=== PATIENT | female | born 1955 | race Caucasian/White ===

== ENCOUNTER 2016-11-18 01:40 | Emergency (ER) | payer MEDICAID ==
[~2016-11-18] VITALS: Ht 165.1 cm; Wt 56.0 kg
[~2016-11-18 01:40] MED LIST: CEPH-376 PO; FLUO20CA19 PO; HYDR-3307 PO; HYDR50CA PO; LORA-445 PO; LOSA50TA6 PO; METO25TA35 PO; PANT40TA5 PO; TRAM50TA2 PO; ZIPR20CA2 PO
[2016-11-18 01:43] VITALS: BP 153/94
[2016-11-18] MEDS ORDERED: QUET100T4 PO (01:50)
[2016-11-18] MEDS ORDERED: OXYC-223 PO (01:50)
[2016-11-18] MEDS ORDERED: ONDANSETRON ODT 4 MG ONE (02:17)
[2016-11-18] MEDS ORDERED: ONDANSETRON ODT 4 MG PO ONE (02:30)
== END 2016-11-18 02:47 | disposition left against medical advice (07) ==
LOC: ED 02:41
DX: F10.220 Alcohol dependence with intoxication, uncomplicated (principal); I10 Essential (primary) hypertension; E87.6 Hypokalemia; F17.210 Nicotine dependence, cigarettes, uncomplicated
CPT/HCPCS: 99283; Q0162

== ENCOUNTER 2017-08-06 23:09 | Inpatient (IN) | payer MEDICAID ==
[~2017-08-06] VITALS: Ht 162.6 cm; Wt 55.5 kg
[~2017-08-06 23:09] MED LIST changes: +OXYC-306 PO; +QUET100T4 PO
[2017-08-07 00:01] LABS: BASOPHILS # (AUTO) 0.16 x10^3/uL (0-0.1); BASOPHILS % (AUTO) 2 % (0-1); EOSINOPHILS # (AUTO) 0.13 x10^3/uL (0-0.4); EOSINOPHILS % (AUTO) 1 % (1-7); HCT (SEDRATE) 32.9 % (34.6-47.8); LYMPHOCYTES # (AUTO) 3.25 x10^3/uL (1-3.4); LYMPHOCYTES % (AUTO) 33 % (22-44); MD NO; MEAN CORPUSCULAR HEMOGLOBIN 28.4 pg (27.0-34.8); MEAN CORPUSCULAR HGB CONC 33.4 g/dL (32.4-35.8); MEAN CORPUSCULAR VOLUME 84.9 fL (80-100); MEAN PLATELET VOLUME 6.5 fL (7.4-10.4); MONOCYTES # (AUTO) 0.68 x10^3/uL (0.2-0.8); MONOCYTES % (AUTO) 7 % (2-9); NEUTROPHILS # (AUTO) 5.57 x10^3/uL (1.8-6.8); NEUTROPHILS % (AUTO) 57 % (42-75); PLATELET COUNT 439 x10^3/uL (130-400); RED BLOOD COUNT 3.87 x10^6/uL (3.82-5.3); RED CELL DISTRIBUTION WIDTH 19.2 % (9.6-15.2)
[2017-08-07 00:12] LABS: ALBUMIN 2.7 g/dL (3.4-5.0); ANION GAP 10 mmol/L (5-15); CALCIUM 7.9 mg/dL (8.5-10.1); CHLORIDE 113 mmol/L (98-107); CREATININE 0.74 mg/dL (0.55-1.02)
[2017-08-07 00:34] LABS: SEDIMENTATION RATE 53 mm/hr (0-20)
[2017-08-07] MEDS ORDERED: SODIUM CHLORIDE FLUSH 10ML SYR IVF ONE (01:30)
[2017-08-07] MEDS ORDERED: CLINDAMYCIN PMX 300MG/50ML 50 ML IV ONE (01:30)
[2017-08-07] MEDS ORDERED: SODIUM CHLORIDE 0.9% 1,000 ML IV ONE (02:35)
[2017-08-07] MEDS ORDERED: SODIUM CHLORIDE FLUSH 10ML SYR IVF PRN (03:00)
[2017-08-07 03:17] VITALS: BP 115/80
[2017-08-07] MEDS ORDERED: METH500T97 PO (03:36)
[2017-08-07] MEDS ORDERED: MULT-252 PO (03:36)
[2017-08-07] MEDS ORDERED: PREG75CA PO (03:36)
== END 2017-08-07 06:00 | disposition left against medical advice (07) | DRG 603 ==
LOC: ED 23:45 → 4NOR 08-07 03:14
PROVIDERS: ADMIT Hospitalist; ATTEND Hospitalist
DX: L03.115 Cellulitis of right lower limb (principal); F25.9 Schizoaffective disorder, unspecified; F10.20 Alcohol dependence, uncomplicated; F31.9 Bipolar disorder, unspecified; F41.1 Generalized anxiety disorder; F43.10 Post-traumatic stress disorder, unspecified; G25.81 Restless legs syndrome; G40.909 Epilepsy, unspecified, not intractable, without status epilepticus; I10 Essential (primary) hypertension; Z86.14 Personal history of Methicillin resistant Staphylococcus aureus infection; Z91.81 History of falling
CPT/HCPCS: 36415; 80048; 80307; 82040; 85025; 85651; 86141; J7030

== ENCOUNTER 2018-12-27 12:18 | Inpatient (IN) | payer MEDICAID ==
[~2018-12-27] VITALS: Ht 165.1 cm; Wt 59.2 kg
[~2018-12-27 12:18] MED LIST changes: +LOSA50TA14 PO; -LOSA50TA6 PO; +METH500T97 PO; +MULT-252 PO; +PREG75CA PO
--- NOTE | 2018-12-27 12:40 | NUR ---
PT BIB [facility] WITH C/O OF LOW BACK PAIN, MID BACK PAIN, ABD C1 PAIN. PT HAS HX OF ANXIETY AND HAS NOT BEEN TAKING HER MEDS. PT WAS HYPOTENSIVE AT [employer] WHERE [facility] WAS CALLED AND REPORTED FEELING LIKE SHE WAS GOING TO PASS OUT. PER [facility] INITIAL BP WAS 60/40. AFTER 550 OF NS BP WAS 102/58. BS WAS 125. PT ON MONITOR.
--- NOTE | 2018-12-27 12:53 | NUR ---
PT IN RAD BEFORE BEING ABLE TO MEDICATE.
[2018-12-27 13:00] LABS: BASOPHILS # (AUTO) 0.08 x10^3/uL (0-0.1); BASOPHILS % (AUTO) 1 % (0-1); EOSINOPHILS # (AUTO) 0.01 x10^3/uL (0-0.4); EOSINOPHILS % (AUTO) 0 % (1-7); LYMPHOCYTES # (AUTO) 1.47 x10^3/uL (1-3.4); LYMPHOCYTES % (AUTO) 14 % (22-44); MD NO; MEAN CORPUSCULAR HEMOGLOBIN 32.5 pg (27.0-34.8); MEAN CORPUSCULAR HGB CONC 33.3 g/dL (32.4-35.8); MEAN CORPUSCULAR VOLUME 97.7 fL (80-100); MEAN PLATELET VOLUME 7.4 fL (7.4-10.4); MONOCYTES # (AUTO) 1.04 x10^3/uL (0.2-0.8); MONOCYTES % (AUTO) 10 % (2-9); NEUTROPHILS % (AUTO) 76 % (42-75); PLATELET COUNT 226 x10^3/uL (130-400); RED BLOOD COUNT 3.97 x10^6/uL (3.82-5.3); RED CELL DISTRIBUTION WIDTH 16.7 % (9.6-15.2)
[2018-12-27] MEDS ORDERED: KETOROLAC 30 MG/1 ML IVPush ONE (13:00)
[2018-12-27] MEDS ORDERED: PLEASE ENTER HEIGHT AND WEIGHT MC SCH (13:00)
[2018-12-27] MEDS ORDERED: METHOCARBAMOL 750 MG TABLET PO ONE (13:00)
[2018-12-27] MEDS ORDERED: KETOROLAC 30 MG/1 ML IM ONE (13:00)
[2018-12-27 13:09] LABS: ALBUMIN 3.6 g/dL (3.4-5.0); ANION GAP 16 mmol/L (5-15); CALCIUM 8.7 mg/dL (8.5-10.1); CHLORIDE 103 mmol/L (98-107); CREATININE 2.39 mg/dL (0.55-1.02)
[2018-12-27] MEDS ORDERED: METHOCARBAMOL 750 MG TABLET ONE (13:09)
[2018-12-27] MEDS ORDERED: hydrOXyzine 50MG TABLET ONE (13:09)
[2018-12-27] MEDS ORDERED: KETOROLAC 30 MG/1 ML ONE (13:10)
[2018-12-27] MEDS ORDERED: SEROQUEL PO (13:27)
[2018-12-27] MEDS ORDERED: PREG150C PO (13:27)
[2018-12-27] MEDS ORDERED: UNKNOWN ANTIBIOTIC PO (13:30)
[2018-12-27] MEDS ORDERED: FLUO40CA2 PO (13:30)
[2018-12-27] MEDS ORDERED: TERAZOSIN PO (13:30)
[2018-12-27] MEDS ORDERED: SODIUM CHLORIDE FLUSH 10ML SYR IVF PRN (13:30)
[2018-12-27] MEDS ORDERED: SODIUM CHLORIDE 0.9% 1,000ML IVBOLUS ONE (14:00)
[2018-12-27] MEDS ORDERED: hydrALAzine 20 MG/ML, 1ML IVPush PRN (16:00)
[2018-12-27] MEDS ORDERED: DOCUSATE 100 MG CAPSULE PO PRN (16:00)
[2018-12-27] MEDS ORDERED: POLYETHYLENE GLYCOL 17 GM PACKET PO PRN (16:00)
[2018-12-27] MEDS ORDERED: LABETALOL 5MG/ML, 20ML IVPush PRN (16:00)
[2018-12-27] MEDS ORDERED: ONDANSETRON 2MG/ML, 2ML IVPush PRN (16:00)
[2018-12-27] MEDS: HEPARIN 5,000 UNITS/ML, 1ML SQ SCH ×2 (16:00→22:49)
[2018-12-27] MEDS ORDERED: BISACODYL 10 MG SUPP PR PRN (16:00)
[2018-12-27] MEDS ORDERED: ONDANSETRON ODT 4 MG PO PRN (16:00)
[2018-12-27] MEDS: ACETAMINOPHEN 325 MG TABLET PO PRN (17:17)
[2018-12-27] MEDS: BACLOFEN 10 MG TABLET PO PRN (17:17)
[2018-12-27] MEDS: D5%-0.9% NACL+KCL 20MEQ 1,000 ML IV SCH (18:41)
[2018-12-27 18:48] VITALS: BP 145/82
[2018-12-27] MEDS: PREGABALIN 150 MG CAPSULE PO SCH (20:52)
[2018-12-27] MEDS: TRAZODONE 50MG TABLET PO PRN (21:14)
[2018-12-28 02:59] VITALS: BP 121/80
[2018-12-28] MEDS: D5%-0.9% NACL+KCL 20MEQ 1,000 ML IV SCH (03:43)
[2018-12-28 04:36] LABS: MEAN CORPUSCULAR HEMOGLOBIN 32.4 pg (27.0-34.8); MEAN CORPUSCULAR HGB CONC 32.8 g/dL (32.4-35.8); MEAN CORPUSCULAR VOLUME 98.8 fL (80-100); MEAN PLATELET VOLUME 7.3 fL (7.4-10.4); PLATELET COUNT 187 x10^3/uL (130-400); RED BLOOD COUNT 3.69 x10^6/uL (3.82-5.3); RED CELL DISTRIBUTION WIDTH 16.3 % (9.6-15.2)
[2018-12-28 04:49] LABS: ALBUMIN 2.9 g/dL (3.4-5.0); ANION GAP 8 mmol/L (5-15); CALCIUM 7.7 mg/dL (8.5-10.1); CHLORIDE 110 mmol/L (98-107)
[2018-12-28 04:53] LABS: ALANINE AMINOTRANSFERASE 25 U/L (12-78); ALKALINE PHOSPHATASE 107 U/L (45-117); BILIRUBIN,TOTAL 0.7 mg/dL (0.2-1.0); CREATININE 1.38 mg/dL (0.55-1.02); TOTAL PROTEIN 6.5 g/dL (6.4-8.2)
[2018-12-28 05:00] LABS: BASOPHILS # (AUTO) 0.06 x10^3/uL (0-0.1); BASOPHILS % (AUTO) 1 % (0-1); EOSINOPHILS # (AUTO) 0.14 x10^3/uL (0-0.4); EOSINOPHILS % (AUTO) 2 % (1-7); LYMPHOCYTES # (AUTO) 1.75 x10^3/uL (1-3.4); LYMPHOCYTES % (AUTO) 30 % (22-44); MD SCAN; MONOCYTES % (AUTO) 10 % (2-9); NEUTROPHILS # (AUTO) 3.28 x10^3/uL (1.8-6.8); NEUTROPHILS % (AUTO) 56 % (42-75)
[2018-12-28] MEDS ORDERED: QUET25TA5 PO (05:33)
[2018-12-28] MEDS ORDERED: BUPR75TA6 PO (05:36)
[2018-12-28] MEDS ORDERED: TRAZ-137 PO (05:37)
[2018-12-28 06:14] LABS: MICROSCOPIC AUTO
[2018-12-28 06:15] LABS: CULTURE INDICATED? YES
[2018-12-28] MEDS: ACETAMINOPHEN 325 MG TABLET PO PRN (06:17)
[2018-12-28] MEDS: BACLOFEN 10 MG TABLET PO PRN ×2 (06:17→18:51)
[2018-12-28 06:23] LABS: AMPHETAMINE SCREEN, URINE Negative (Negative); BARBITURATE SCREEN, URINE Negative (Negative); BENZODIAZEPINE SCREEN, URINE Negative (Negative); CANNABINOID SCREEN, URINE Negative (Negative); COCAINE SCREEN, URINE Negative (Negative); METHADONE SCREEN, URINE Negative (Negative); OPIATE SCREEN, URINE Negative (Negative)
[2018-12-28 07:49] VITALS: BP 167/83
[2018-12-28] MEDS ORDERED: MAGNESIUM SULFATE PMX 2GM/50ML 50 ML IV ONE (08:00)
[2018-12-28] MEDS ORDERED: POTASSIUM CHLORIDE 20 MEQ TAB.ER.PRT PO ONE (08:00)
[2018-12-28] MEDS ORDERED: D5%-0.45NACL+KCL 20MEQ 1,000 ML IV SCH (08:00)
[2018-12-28] MEDS: HEPARIN 5,000 UNITS/ML, 1ML SQ SCH ×2 (09:06→15:11)
[2018-12-28] MEDS: CEFTRIAXONE PMX 1GM/50ML 50 ML IV SCH (09:06)
[2018-12-28] MEDS: FLUOXETINE HCL 20 MG CAPSULE PO SCH (09:07)
[2018-12-28] MEDS: PREGABALIN 150 MG CAPSULE PO SCH ×2 (09:07→21:22)
[2018-12-28] MEDS: NEUTRA PHOS K 250 MG TABLET PO SCH ×2 (09:07→21:22)
[2018-12-28] MEDS ORDERED: LORazepam 1MG TABLET PO ONE (10:00)
[2018-12-28 13:17] VITALS: BP 154/91
[2018-12-28 18:31] VITALS: BP 181/100
[2018-12-28 18:49] VITALS: BP 163/98
[2018-12-28] MEDS: TRAZODONE 50MG TABLET PO PRN (21:22)
[2018-12-29 00:24] VITALS: BP 147/88
[2018-12-29 06:08] LABS: ANION GAP 6 mmol/L (5-15); CALCIUM 8.8 mg/dL (8.5-10.1); CHLORIDE 110 mmol/L (98-107)
[2018-12-29 06:11] LABS: CREATININE 0.84 mg/dL (0.55-1.02)
[2018-12-29 06:43] VITALS: BP 139/80
[2018-12-29] MEDS: HEPARIN 5,000 UNITS/ML, 1ML SQ SCH ×3 (07:15→15:34)
[2018-12-29] MEDS: NEUTRA PHOS K 250 MG TABLET PO SCH ×2 (08:57→20:31)
[2018-12-29] MEDS: PREGABALIN 150 MG CAPSULE PO SCH ×2 (08:57→20:31)
[2018-12-29] MEDS: FLUOXETINE HCL 20 MG CAPSULE PO SCH (08:57)
[2018-12-29] MEDS: BACLOFEN 10 MG TABLET PO PRN ×2 (08:57→17:44)
[2018-12-29] MEDS: CEFTRIAXONE PMX 1GM/50ML 50 ML IV SCH (08:58)
[2018-12-29 13:34] VITALS: BP 155/96
[2018-12-29] MEDS: LIDODERM 5% PATCH TD PRN ×2 (17:45→20:32)
[2018-12-29 18:39] VITALS: BP 165/92
[2018-12-29] MEDS: ACETAMINOPHEN 325 MG TABLET PO PRN (20:31)
[2018-12-29] MEDS: TRAZODONE 50MG TABLET PO PRN (22:35)
[2018-12-30] MEDS: HEPARIN 5,000 UNITS/ML, 1ML SQ SCH ×2 (00:10→08:21)
[2018-12-30 00:15] VITALS: BP 137/79
[2018-12-30] MEDS: BACLOFEN 10 MG TABLET PO PRN ×2 (05:07→15:23)
[2018-12-30 06:30] VITALS: BP 151/70
[2018-12-30] MEDS ORDERED: CEFD300C37 PO (08:15)
[2018-12-30] MEDS: FLUOXETINE HCL 20 MG CAPSULE PO SCH (08:20)
[2018-12-30] MEDS: NEUTRA PHOS K 250 MG TABLET PO SCH (08:20)
[2018-12-30] MEDS: PREGABALIN 150 MG CAPSULE PO SCH (08:20)
[2018-12-30] MEDS: CEFTRIAXONE PMX 1GM/50ML 50 ML IV SCH (08:20)
[2018-12-30] MEDS: ACETAMINOPHEN 325 MG TABLET PO PRN (09:17)
[2018-12-30 12:41] VITALS: BP 138/68
[2018-12-30] MEDS ORDERED: BACL-19 PO (14:28)
[2018-12-30] MEDS ORDERED: MAGN200T7 PO (14:29)
[2018-12-30] MEDS: LIDODERM 5% PATCH TD PRN (15:23)
== END 2018-12-30 15:34 | disposition home or self-care (01) | DRG 689 ==
LOC: ED 13:28 → EDIP 13:29 → ED 13:45 → 3NE 14:30
PROVIDERS: ADMIT Hospitalist; ATTEND Hospitalist
DX: N39.0 Urinary tract infection, site not specified (principal); N17.0 Acute kidney failure with tubular necrosis; E44.0 Moderate protein-calorie malnutrition; E87.1 Hypo-osmolality and hyponatremia; E87.2 Acidosis; B96.1 Klebsiella pneumoniae [K. pneumoniae] as the cause of diseases classified elsewhere; E83.39 Other disorders of phosphorus metabolism; E83.42 Hypomagnesemia; E87.6 Hypokalemia; F10.20 Alcohol dependence, uncomplicated; F25.9 Schizoaffective disorder, unspecified; F31.9 Bipolar disorder, unspecified; F41.1 Generalized anxiety disorder; F43.10 Post-traumatic stress disorder, unspecified; G40.909 Epilepsy, unspecified, not intractable, without status epilepticus; G89.29 Other chronic pain; I10 Essential (primary) hypertension; Z76.5 Malingerer [conscious simulation]; Z91.19 Patient's noncompliance with other medical treatment and regimen; Z68.21 Body mass index [BMI] 21.0-21.9, adult; M54.2 Cervicalgia
CPT/HCPCS: 36415; 72050; 72141; 76770; 80048; 80053; 80307; 81001; 82040; 83735; 84100; 85025; 87077; 87086; 87147; 87186; 96374; G0378; J0696; J1885; J3475; J3480; J7030; Q0177

== ENCOUNTER 2019-01-24 17:27 | Emergency (ER) | payer MEDICAID ==
[~2019-01-24] VITALS: Ht 162.6 cm; Wt 56.0 kg
[2019-01-24 17:52] VITALS: BP 89/55
== END 2019-01-24 19:54 | disposition home or self-care (01) ==
LOC: ED 19:48
DX: R55 Syncope and collapse (principal); F10.120 Alcohol abuse with intoxication, uncomplicated; I10 Essential (primary) hypertension; F25.9 Schizoaffective disorder, unspecified; F31.9 Bipolar disorder, unspecified; F41.9 Anxiety disorder, unspecified; F43.10 Post-traumatic stress disorder, unspecified; G40.909 Epilepsy, unspecified, not intractable, without status epilepticus; M19.90 Unspecified osteoarthritis, unspecified site; Z98.890 Other specified postprocedural states; Z72.9 Problem related to lifestyle, unspecified; Y90.9 Presence of alcohol in blood, level not specified
CPT/HCPCS: 36415; 80053; 80307; 83690; 85025; 93005; 99284

== ENCOUNTER 2019-02-18 21:29 | Emergency (ER) | payer MEDICAID ==
[~2019-02-18] VITALS: Ht 165.1 cm; Wt 60.0 kg
[~2019-02-18 21:29] MED LIST changes: +BACL-19 PO; +BUPR75TA6 PO; +CEFD300C37 PO; +FLUO40CA2 PO; -HYDR-3307 PO; +HYDR-36 PO; +MAGN200T7 PO; +PREG150C PO; +QUET25TA5 PO; +QUET50TA5 PO; +SEROQUEL PO; +TERA2CAP3 PO; +TERAZOSIN PO; +TRAZ-137 PO; +UNKNOWN ANTIBIOTIC PO
--- NOTE | 2019-02-18 21:45 | NUR ---
PT PRESENTS TO ED WITH DIZZINESS ALL DA WITH A COUPLE OF FALLS, WITHOUT LOC. PT REPORTS ETOH ON BOARD AND CHRONIC PAIN. PT TEARFUL REGARDING CHRONIC BACK PAIN.
--- NOTE | 2019-02-18 21:56 | NUR ---
MD AT BEDSIDE TALKING W/ PT
--- NOTE | 2019-02-18 21:58 | NUR ---
RECEIVED REPORT FROM ALEXANDRE HERNANDEZ AND ASSUMED PT CARE.
--- NOTE | 2019-02-18 22:02 | NUR ---
REPORT TO ALEXANDRE ROME.
[2019-02-18] MEDS ORDERED: DIAZ2TAB PO (22:05)
--- NOTE | 2019-02-18 22:13 | NUR ---
PT TO RESTROOM VIA WC. URINE SAMPLE COLLECTED AND TO LAB. PT INTO STRETCHER AND LAB AT BEDSIDE.
[2019-02-18 22:21] LABS: BASOPHILS # (AUTO) 0.08 x10^3/uL (0-0.1); BASOPHILS % (AUTO) 1 % (0-1); EOSINOPHILS # (AUTO) 0.29 x10^3/uL (0-0.4); EOSINOPHILS % (AUTO) 4 % (1-7); LYMPHOCYTES # (AUTO) 3.12 x10^3/uL (1-3.4); LYMPHOCYTES % (AUTO) 41 % (22-44); MD NO; MEAN CORPUSCULAR HEMOGLOBIN 32.3 pg (27.0-34.8); MEAN CORPUSCULAR HGB CONC 33.2 g/dL (32.4-35.8); MEAN CORPUSCULAR VOLUME 97.2 fL (80-100); MEAN PLATELET VOLUME 7.2 fL (7.4-10.4); MONOCYTES # (AUTO) 0.62 x10^3/uL (0.2-0.8); MONOCYTES % (AUTO) 8 % (2-9); NEUTROPHILS # (AUTO) 3.47 x10^3/uL (1.8-6.8); NEUTROPHILS % (AUTO) 46 % (42-75); PLATELET COUNT 266 x10^3/uL (130-400); RED BLOOD COUNT 4.53 x10^6/uL (3.82-5.3)
[2019-02-18 22:34] LABS: ALANINE AMINOTRANSFERASE 39 U/L (12-78); ANION GAP 14 mmol/L (5-15); CALCIUM 9.3 mg/dL (8.5-10.1); CHLORIDE 102 mmol/L (98-107); CREATININE 0.97 mg/dL (0.55-1.02)
[2019-02-18 22:39] LABS: ALKALINE PHOSPHATASE 152 U/L (45-117); BILIRUBIN,TOTAL 0.4 mg/dL (0.2-1.0); TOTAL PROTEIN 8.9 g/dL (6.4-8.2); TROPONIN I < 0.015 ng/mL (0.000-0.045)
--- NOTE | 2019-02-18 22:46 | NUR ---
PT ATTEMPTING TO GET OUT OF BED TO "FIND PURSE." ADVISED PT THAT SHE DID NOT COME IN WITH ANY BELONGINGS BESIDES HER SHOES. PT AGREED TO STAY IN BED.
--- NOTE | 2019-02-18 22:58 | NUR ---
ATTEMPTED TO CALL PT FRIEND TONICRISTIANA AT [phone] PER REQUEST BUT UNABLE TO REACH HIM D/T MESSAGE SAYING "YOUR NUMBER CANNOT BE COMPLETED DIALED"
[2019-02-18 23:02] VITALS: BP 138/80
[2019-03-14] MEDS ORDERED: MAGN400T50 PO (13:57)
[2019-03-14] MEDS ORDERED: CEFT1FRO2 IV (13:57)
[2019-03-14] MEDS ORDERED: ACID1TAB7 PO (13:57)
== END 2019-02-18 23:52 | disposition home or self-care (01) ==
LOC: ED 23:06
DX: F10.120 Alcohol abuse with intoxication, uncomplicated (principal); R55 Syncope and collapse; R42 Dizziness and giddiness; I10 Essential (primary) hypertension; G40.909 Epilepsy, unspecified, not intractable, without status epilepticus; F25.9 Schizoaffective disorder, unspecified; F43.10 Post-traumatic stress disorder, unspecified; F31.9 Bipolar disorder, unspecified; F41.1 Generalized anxiety disorder; Z72.9 Problem related to lifestyle, unspecified
CPT/HCPCS: 36415; 80053; 80307; 84484; 85025; 93005; 99284

== ENCOUNTER 2019-04-04 13:00 | Inpatient (IN) | payer MEDICAID ==
[~2019-04-04] VITALS: Ht 165.1 cm; Wt 57.7 kg
[~2019-04-04 13:00] MED LIST changes: +ACID1TAB7 PO; +CEFT1FRO2 IV; +DIAZ2TAB PO; +MAGN400T50 PO
[2019-04-04 14:54] LABS: BASOPHILS # (AUTO) 0.09 x10^3/uL (0-0.1); BASOPHILS % (AUTO) 1 % (0-1); EOSINOPHILS % (AUTO) 1 % (1-7); LYMPHOCYTES # (AUTO) 2.51 x10^3/uL (1-3.4); LYMPHOCYTES % (AUTO) 28 % (22-44); MD NO; MEAN CORPUSCULAR HEMOGLOBIN 31.9 pg (27.0-34.8); MEAN CORPUSCULAR HGB CONC 33.2 g/dL (32.4-35.8); MEAN CORPUSCULAR VOLUME 96.1 fL (80-100); MEAN PLATELET VOLUME 6.8 fL (7.4-10.4); MONOCYTES # (AUTO) 1.06 x10^3/uL (0.2-0.8); MONOCYTES % (AUTO) 12 % (2-9); NEUTROPHILS # (AUTO) 5.39 x10^3/uL (1.8-6.8); NEUTROPHILS % (AUTO) 59 % (42-75); PLATELET COUNT 416 x10^3/uL (130-400); RED BLOOD COUNT 4.02 x10^6/uL (3.82-5.3); RED CELL DISTRIBUTION WIDTH 18.1 % (9.6-15.2)
[2019-04-04 15:05] LABS: ALBUMIN 3.3 g/dL (3.4-5.0); ANION GAP 12 mmol/L (5-15); CALCIUM 8.6 mg/dL (8.5-10.1); CHLORIDE 101 mmol/L (98-107)
[2019-04-04 15:09] LABS: ALANINE AMINOTRANSFERASE 20 U/L (12-78); ALKALINE PHOSPHATASE 132 U/L (45-117); BILIRUBIN,TOTAL 0.3 mg/dL (0.2-1.0); CREATININE 1.85 mg/dL (0.55-1.02); TOTAL PROTEIN 9.1 g/dL (6.4-8.2)
--- NOTE | 2019-04-04 15:13 | NUR ---
ELECTRIC METER TESTER: PT TO ROOM FROM RORY CHANDRA
--- NOTE | 2019-04-04 16:15 | NUR ---
patient updated on plan of care, no noted acute distress. request pain medication for back, provider notified. will continue to monitor, patient tolerating interventions well at this time.
--- NOTE | 2019-04-04 16:36 | NUR ---
TASK RN: PT GIVEN UA CUP. PT AMBULATORY WITH STEADY GAIT TO BATHROOM TO TRY FOR UA SAMPLE.
--- NOTE | 2019-04-04 16:59 | NUR ---
patietn resting in bed, no noted acute distress. tolerating interventions well. will continue to monitor.
[2019-04-04 17:10] LABS: CULTURE INDICATED? YES; MICROSCOPIC INDICATED
--- NOTE | 2019-04-04 17:59 | NUR ---
PATIENT GONE TO CT.
--- NOTE | 2019-04-04 18:09 | NUR ---
SPOKE WITH PATIENT REGARDING FOOD, WILL SPEAK WITH ADMITTING MD.
--- NOTE | 2019-04-04 18:41 | NUR ---
TASK RN: PT RESTING ON GUR[place]UMBUS. NO ACUTE DISTRESS NOTED. PT WAITING FOR ROOM ASSIGNMENT. NO NEEDS REQUESTED AT THIS TIME.
[2019-04-04] MEDS ORDERED: CEFTRIAXONE PMX 1GM/50ML 50 ML IVPB ONE (19:00)
--- NOTE | 2019-04-04 19:10 | NUR ---
REPORT TO ALEXANDRE EDWARDS.
[2019-04-04] MEDS ORDERED: CEFTRIAXONE PMX 1GM/50ML 50 ML ONE (19:11)
--- NOTE | 2019-04-04 19:16 | NUR ---
patient updated on plan of care. antibiotics started. patient tolerating interventions well. vital signs stable.
[2019-04-04 19:30] VITALS: BP 139/86
[2019-04-04] MEDS ORDERED: FLUO40CA9 PO (20:26)
[2019-04-04] MEDS ORDERED: LURA20TA PO (20:26)
[2019-04-04] MEDS: LURASIDONE 20 MG TABLET PO SCH (22:16)
[2019-04-04] MEDS: DIAZEPAM 5 MG TABLET PO SCH (22:16)
[2019-04-04] MEDS: TRAZODONE 100MG TABLET PO SCH (22:17)
[2019-04-04] MEDS: PREGABALIN 150 MG CAPSULE PO SCH (22:17)
[2019-04-04] MEDS: QUETIAPINE 100MG TABLET PO SCH (22:17)
[2019-04-04] MEDS ORDERED: DOCUSATE 100 MG CAPSULE PO PRN (22:30)
[2019-04-04] MEDS ORDERED: LIDODERM 5% PATCH TD PRN (22:30)
[2019-04-04] MEDS ORDERED: hydrALAzine 20 MG/ML, 1ML IVPush PRN (22:30)
[2019-04-04] MEDS ORDERED: ONDANSETRON ODT 4 MG PO PRN (22:30)
[2019-04-04] MEDS: HEPARIN 5,000 UNITS/ML, 1ML SQ SCH (22:38)
[2019-04-04] MEDS: SODIUM CHLORIDE 0.9% 1,000 ML IV SCH (22:41)
[2019-04-04 23:16] VITALS: BP 66/45
[2019-04-04 23:17] VITALS: BP 90/58
[2019-04-04 23:38] VITALS: BP 88/56
[2019-04-05] VITALS (10 sets, daily range): BP systolic 110–171; BP diastolic 72–103
[2019-04-05] MEDS: SODIUM CHLORIDE 0.9% 1,000 ML IV SCH ×3 (05:09→20:06)
[2019-04-05 06:11] LABS: BASOPHILS # (AUTO) 0.06 x10^3/uL (0-0.1); BASOPHILS % (AUTO) 1 % (0-1); EOSINOPHILS # (AUTO) 0.16 x10^3/uL (0-0.4); EOSINOPHILS % (AUTO) 2 % (1-7); LYMPHOCYTES # (AUTO) 2.21 x10^3/uL (1-3.4); LYMPHOCYTES % (AUTO) 26 % (22-44); MD NO; MEAN CORPUSCULAR HEMOGLOBIN 31.7 pg (27.0-34.8); MEAN PLATELET VOLUME 6.7 fL (7.4-10.4); MONOCYTES % (AUTO) 10 % (2-9); NEUTROPHILS # (AUTO) 5.18 x10^3/uL (1.8-6.8); NEUTROPHILS % (AUTO) 62 % (42-75); PLATELET COUNT 336 x10^3/uL (130-400); RED BLOOD COUNT 3.62 x10^6/uL (3.82-5.3); RED CELL DISTRIBUTION WIDTH 18.5 % (9.6-15.2)
[2019-04-05] MEDS: HEPARIN 5,000 UNITS/ML, 1ML SQ SCH ×3 (06:19→22:30)
[2019-04-05 06:27] LABS: ANION GAP 11 mmol/L (5-15); CALCIUM 8.1 mg/dL (8.5-10.1); CHLORIDE 106 mmol/L (98-107); CREATININE 2.09 mg/dL (0.55-1.02)
[2019-04-05] MEDS: LURASIDONE 20 MG TABLET PO SCH ×2 (08:26→20:05)
[2019-04-05] MEDS: PREGABALIN 150 MG CAPSULE PO SCH ×2 (08:26→20:05)
[2019-04-05] MEDS: FLUOXETINE HCL 20 MG CAPSULE PO SCH (08:27)
[2019-04-05] MEDS: DIAZEPAM 5 MG TABLET PO SCH ×2 (08:27→20:05)
[2019-04-05] MEDS ORDERED: [UNRECOGNIZED DRUG - OTHER] PO (18:06)
[2019-04-05] MEDS: CEFTRIAXONE PMX 1GM/50ML 50 ML IV SCH (20:05)
[2019-04-05] MEDS: QUETIAPINE 100MG TABLET PO SCH (20:05)
[2019-04-05] MEDS: TRAZODONE 100MG TABLET PO SCH (20:12)
[2019-04-05] MEDS ORDERED: SODIUM CHLORIDE 0.9% 1,000 ML IV SCH (22:18)
[2019-04-06 00:39] VITALS: BP 138/85
[2019-04-06] MEDS: SODIUM CHLORIDE 0.9% 1,000 ML IV SCH ×4 (02:18→20:31)
[2019-04-06] MEDS: HEPARIN 5,000 UNITS/ML, 1ML SQ SCH ×3 (05:07→20:31)
[2019-04-06 05:15] LABS: ALBUMIN 2.5 g/dL (3.4-5.0); ANION GAP 8 mmol/L (5-15); CALCIUM 8.2 mg/dL (8.5-10.1); CHLORIDE 111 mmol/L (98-107)
[2019-04-06 05:18] LABS: ALANINE AMINOTRANSFERASE 11 U/L (12-78); ALKALINE PHOSPHATASE 107 U/L (45-117); BILIRUBIN,TOTAL 0.2 mg/dL (0.2-1.0); CREATININE 1.52 mg/dL (0.55-1.02); TOTAL PROTEIN 7.1 g/dL (6.4-8.2)
[2019-04-06] MEDS: PREGABALIN 150 MG CAPSULE PO SCH ×2 (07:57→20:31)
[2019-04-06] MEDS: FLUOXETINE HCL 20 MG CAPSULE PO SCH (07:57)
[2019-04-06] MEDS: DIAZEPAM 5 MG TABLET PO SCH ×2 (07:57→20:31)
[2019-04-06] MEDS: LURASIDONE 20 MG TABLET PO SCH ×2 (07:57→20:31)
[2019-04-06 09:10] VITALS: BP 153/89
[2019-04-06] MEDS ORDERED: MAGNESIUM SULFATE PMX 2GM/50ML 50 ML IV ONE (09:30)
[2019-04-06] MEDS: OXYcodone IR 5MG TABLET PO PRN ×2 (12:56→21:20)
[2019-04-06 13:33] VITALS: BP 162/97
[2019-04-06] MEDS: METOPROLOL TARTRATE 25 MG TABLET PO SCH (17:22)
[2019-04-06] MEDS: CEFTRIAXONE PMX 1GM/50ML 50 ML IV SCH (19:24)
[2019-04-06 19:55] VITALS: BP 178/97
[2019-04-06] MEDS: TRAZODONE 100MG TABLET PO SCH (20:30)
[2019-04-06] MEDS: QUETIAPINE 100MG TABLET PO SCH (20:31)
[2019-04-06 21:20] VITALS: BP 137/79
[2019-04-07 01:08] VITALS: BP 93/56
[2019-04-07] MEDS: METOPROLOL TARTRATE 25 MG TABLET PO SCH ×2 (04:37→05:40)
[2019-04-07] MEDS: OXYcodone IR 5MG TABLET PO PRN ×2 (04:37→11:48)
[2019-04-07] MEDS: HEPARIN 5,000 UNITS/ML, 1ML SQ SCH (04:38)
[2019-04-07] MEDS: SODIUM CHLORIDE 0.9% 1,000 ML IV SCH (04:38)
[2019-04-07 04:39] VITALS: BP 147/85
[2019-04-07 06:14] LABS: BASOPHILS # (AUTO) 0.06 x10^3/uL (0-0.1); BASOPHILS % (AUTO) 1 % (0-1); EOSINOPHILS # (AUTO) 0.21 x10^3/uL (0-0.4); EOSINOPHILS % (AUTO) 3 % (1-7); LYMPHOCYTES # (AUTO) 2.25 x10^3/uL (1-3.4); LYMPHOCYTES % (AUTO) 27 % (22-44); MD NO; MEAN CORPUSCULAR HGB CONC 33.2 g/dL (32.4-35.8); MEAN CORPUSCULAR VOLUME 96.5 fL (80-100); MEAN PLATELET VOLUME 6.9 fL (7.4-10.4); MONOCYTES # (AUTO) 1.18 x10^3/uL (0.2-0.8); MONOCYTES % (AUTO) 14 % (2-9); NEUTROPHILS # (AUTO) 4.79 x10^3/uL (1.8-6.8); NEUTROPHILS % (AUTO) 57 % (42-75); PLATELET COUNT 322 x10^3/uL (130-400); RED BLOOD COUNT 3.58 x10^6/uL (3.82-5.3)
[2019-04-07 06:21] LABS: ANION GAP 8 mmol/L (5-15); CALCIUM 7.8 mg/dL (8.5-10.1); CHLORIDE 108 mmol/L (98-107); CREATININE 1.54 mg/dL (0.55-1.02)
[2019-04-07] MEDS ORDERED: MAGNESIUM SULFATE PMX 2GM/50ML 50 ML IV ONE (07:00)
[2019-04-07] MEDS: LURASIDONE 20 MG TABLET PO SCH (08:18)
[2019-04-07] MEDS: FLUOXETINE HCL 20 MG CAPSULE PO SCH (08:19)
[2019-04-07] MEDS: DIAZEPAM 5 MG TABLET PO SCH (08:20)
[2019-04-07] MEDS: PREGABALIN 150 MG CAPSULE PO SCH (08:21)
[2019-04-07 08:29] VITALS: BP 120/74
[2019-04-07] MEDS ORDERED: CEPH-368 PO (10:18)
== END 2019-04-07 11:49 | disposition home or self-care (01) | DRG 282 ==
LOC: ED 16:25 → EDIP 18:48 → 4WST 19:38
PROVIDERS: ADMIT Internal Medicine; ATTEND Internal Medicine
DX: K85.20 Alcohol induced acute pancreatitis without necrosis or infection (principal); N17.0 Acute kidney failure with tubular necrosis; I27.20 Pulmonary hypertension, unspecified; E83.42 Hypomagnesemia; I50.32 Chronic diastolic (congestive) heart failure; F25.0 Schizoaffective disorder, bipolar type; I13.0 Hypertensive heart and chronic kidney disease with heart failure and stage 1 through stage 4 chronic kidney disease, or unspecified chronic kidney disease; N12 Tubulo-interstitial nephritis, not specified as acute or chronic; N30.90 Cystitis, unspecified without hematuria; B96.20 Unspecified Escherichia coli [E. coli] as the cause of diseases classified elsewhere; F10.10 Alcohol abuse, uncomplicated; F41.1 Generalized anxiety disorder; F43.10 Post-traumatic stress disorder, unspecified; F45.22 Body dysmorphic disorder; N18.9 Chronic kidney disease, unspecified; G25.81 Restless legs syndrome; G40.909 Epilepsy, unspecified, not intractable, without status epilepticus; R00.0 Tachycardia, unspecified; J32.9 Chronic sinusitis, unspecified; Z87.440 Personal history of urinary (tract) infections
CPT/HCPCS: 36415; 70450; 76770; 80048; 80053; 81001; 82533; 82977; 83605; 83690; 83735; 84100; 85025; 87040; 87077; 87086; 87186; 93005; 96365; G0378; J0696; Q0162; J0360; J3475; J7030

== ENCOUNTER 2019-08-07 15:27 | Emergency (ER) | payer MEDICAID ==
[~2019-08-07] VITALS: Ht 165.1 cm; Wt 60.3 kg
[~2019-08-07 15:27] MED LIST changes: +CEPH-368 PO; +FLUO40CA9 PO; +LURA20TA PO; -TRAZ-137 PO; +TRAZ-175 PO; +[UNRECOGNIZED DRUG - OTHER] PO
[2019-08-07 17:29] LABS: ALBUMIN 3.6 g/dL (3.4-5.0); ANION GAP 11 mmol/L (5-15); BASOPHILS # (AUTO) 0.05 x10^3/uL (0-0.1); BASOPHILS % (AUTO) 1 % (0-1); CALCIUM 9.2 mg/dL (8.5-10.1); CHLORIDE 109 mmol/L (98-107); CREATININE 1.45 mg/dL (0.55-1.02); EOSINOPHILS # (AUTO) 0.08 x10^3/uL (0-0.4); EOSINOPHILS % (AUTO) 1 % (1-7); LYMPHOCYTES # (AUTO) 2.43 x10^3/uL (1-3.4); LYMPHOCYTES % (AUTO) 32 % (22-44); MD NO; MEAN CORPUSCULAR HGB CONC 33.4 g/dL (32.4-35.8); MEAN CORPUSCULAR VOLUME 89.9 fL (80-100); MONOCYTES # (AUTO) 0.51 x10^3/uL (0.2-0.8); MONOCYTES % (AUTO) 7 % (2-9); NEUTROPHILS # (AUTO) 4.63 x10^3/uL (1.8-6.8); NEUTROPHILS % (AUTO) 60 % (42-75); PLATELET COUNT 393 x10^3/uL (130-400); RED BLOOD COUNT 4.28 x10^6/uL (3.82-5.3); RED CELL DISTRIBUTION WIDTH 15.7 % (9.6-15.2)
--- NOTE | 2019-08-07 17:57 | NUR ---
PATIENT ARRIVES WITH A MONTH OF COUGHING THAT IS BOTHERING HER THAT IS AFFECTING HER SLEEP.
[2019-08-07] MEDS ORDERED: CLON1TAB PO (18:03)
--- NOTE | 2019-08-07 18:04 | NUR ---
PATIENT STATES SHE HAS KIDNEY FAILURE HISTORY AND NOW STATES SHE THINKS SHE HAS A UTI. WILL GET URINE SAMPLE. PATIENT STATES URGENCY/PAIN AND "SMELLY" URINE. WAS HOSPITALIZED IN December FOR KIDNEY FAILURE
[2019-08-07 18:27] VITALS: BP 137/85
[2019-08-07] MEDS ORDERED: PANTOPRAZOLE 20MG TABLET ONE (18:29)
[2019-08-07] MEDS ORDERED: PANTOPRAZOLE 20MG TABLET PO ONE (18:30)
== END 2019-08-07 18:45 | disposition home or self-care (01) ==
LOC: ED 16:27
DX: J15.9 Unspecified bacterial pneumonia (principal); I10 Essential (primary) hypertension; R00.0 Tachycardia, unspecified
CPT/HCPCS: 36415; 71046; 80048; 82040; 85025; 93005; 99285

== ENCOUNTER 2019-08-16 11:30 | Emergency (ER) | payer MEDICAID ==
[~2019-08-16] VITALS: Ht 162.6 cm; Wt 54.5 kg
[~2019-08-16 11:30] MED LIST changes: +CLON1TAB PO
[2019-08-16 11:58] VITALS: BP 158/99
--- NOTE | 2019-08-16 12:30 | NUR ---
LATE ENTRY: PT DRESSED IN GOWN, ALL BELONGINGS REMOVED, BAGGED, TAGGED AT BEDSIDE. PT DENIES ANY SI/SA. SITTER NOTIFIED.
[2019-08-16 12:57] LABS: BASOPHILS # (AUTO) 0.07 x10^3/uL (0-0.1); BASOPHILS % (AUTO) 1 % (0-1); EOSINOPHILS % (AUTO) 1 % (1-7); LYMPHOCYTES # (AUTO) 3.59 x10^3/uL (1-3.4); LYMPHOCYTES % (AUTO) 43 % (22-44); MD NO; MEAN CORPUSCULAR HEMOGLOBIN 30.6 pg (27.0-34.8); MEAN CORPUSCULAR HGB CONC 33.7 g/dL (32.4-35.8); MEAN CORPUSCULAR VOLUME 90.7 fL (80-100); MEAN PLATELET VOLUME 6.6 fL (7.4-10.4); MONOCYTES # (AUTO) 0.53 x10^3/uL (0.2-0.8); MONOCYTES % (AUTO) 6 % (2-9); NEUTROPHILS # (AUTO) 4.11 x10^3/uL (1.8-6.8); NEUTROPHILS % (AUTO) 49 % (42-75); PLATELET COUNT 307 x10^3/uL (130-400); RED BLOOD COUNT 4.01 x10^6/uL (3.82-5.3); RED CELL DISTRIBUTION WIDTH 16.8 % (9.6-15.2)
[2019-08-16 13:09] LABS: ALANINE AMINOTRANSFERASE 35 U/L (12-78); ALBUMIN 3.4 g/dL (3.4-5.0); ANION GAP 8 mmol/L (5-15); CALCIUM 8.1 mg/dL (8.5-10.1); CHLORIDE 109 mmol/L (98-107); CREATININE 1.68 mg/dL (0.55-1.02)
[2019-08-16 13:14] LABS: SALICYLATE LEVEL < 1.7 mg/dL (2.8-20.0)
[2019-08-16 13:19] LABS: ALKALINE PHOSPHATASE 116 U/L (45-117); BILIRUBIN,TOTAL 0.2 mg/dL (0.2-1.0); TOTAL PROTEIN 7.8 g/dL (6.4-8.2)
[2019-08-16 13:38] LABS: AMPHETAMINE SCREEN, URINE Negative (Negative); BARBITURATE SCREEN, URINE Negative (Negative); BENZODIAZEPINE SCREEN, URINE Negative (Negative); CANNABINOID SCREEN, URINE Negative (Negative); COCAINE SCREEN, URINE Negative (Negative); METHADONE SCREEN, URINE Negative (Negative); OPIATE SCREEN, URINE Negative (Negative)
--- NOTE | 2019-08-16 14:59 | NUR ---
PT CALLED FOR ASSISTANCE TO RESTROOM. PT SLURRING SPEECH, GAIT UNSTEADY. PERSONAL BOTTLE OF VODKA FOUND IN ROOM, LID OFF, EMPTY. ALL BELONGINGS BAGS REMOVED AND LOCKED IN LOCKER. BOW MAKER PRODUCTION NOTIFIED. PT DISAGREEABLE TO HAVING CURTAIN OPEN FOR DIRECT LINE OF SIGHT. CURTAIN REMOVED. TV TURNED ON PER REQUEST.
[2019-08-16 15:03] LABS: MICROSCOPIC AUTO
[2019-08-16 15:05] LABS: CULTURE INDICATED? YES
--- NOTE | 2019-08-16 15:10 | NUR ---
REPORT FROM ALEXANDRE RICE. PT RESTING WITH EYES CLOSED. EVEN/REGULAR RESPIRATIONS NOTED. ROOM SECURE. SITTER PRESENT.
--- NOTE | 2019-08-16 16:00 | NUR ---
PT REQUESTING TO USE RESTROOM. PT AMBULATORY TO RESTROOM WITH STEADY GAIT. UPON RETURN TO ROOM, PT DEMANDING TO LEAVE OR GO UPSTAIRS. PT MADE AWARE THAT DUE TO ALCOHOL CONSUMPTION, SHE IS NOT PERMITTED UPSTAIRS UNTIL SHE IS SOBER. MEAL TRAY REQUESTED.
--- NOTE | 2019-08-16 16:47 | NUR ---
SI APPROPRIATE MEAL TRAY PROVIDED. PT REQUESTING TO GO UPSTAIRS. REPEAT EDUCATION AND POC REVIEWED WITH PATIENT. ROOM REMAINS SECURE. SITTER PRESENT.
--- NOTE | 2019-08-16 18:18 | NUR ---
BREATHALYZER COMPLETED. PT COOPERATIVE.
--- NOTE | 2019-08-16 19:12 | NUR ---
KNIFE CUTTER AT BEDSIDE TO ASSESS PATIENT
--- NOTE | 2019-08-16 20:25 | NUR ---
PT CLEARED BY FAMILY RESOURCE COORDINATOR. DC EDUCATION PROVIDED, PT DEMONSTRATES UNDERSTANDING. PT AMBULATED STEADILY TO DC WITH FRIEND. FRIEND TO TRANSPORT PT HOME.
== END 2019-08-16 20:27 | disposition home or self-care (01) ==
LOC: ED 19:00
DX: F10.10 Alcohol abuse, uncomplicated (principal); F50.2 Bulimia nervosa; I12.9 Hypertensive chronic kidney disease with stage 1 through stage 4 chronic kidney disease, or unspecified chronic kidney disease; N18.9 Chronic kidney disease, unspecified; G40.909 Epilepsy, unspecified, not intractable, without status epilepticus
CPT/HCPCS: 36415; 80053; 80307; 81001; 84443; 85025; 87077; 87086; 87186; 99283

== ENCOUNTER 2020-01-26 17:57 | Emergency (ER) | payer MEDICAID ==
[~2020-01-26] VITALS: Ht 160 cm; Wt 70.0 kg
[~2020-01-26 17:57] MED LIST changes: +HYDR-3246 PO; -HYDR-36 PO
[2020-01-26 18:35] VITALS: BP 130/78
--- NOTE | 2020-01-26 18:44 | NUR ---
just got patient moved to my room and patient report from Nelda. patient belongings locked up, and patient in gown. sitter outside room. all suicide precations in place. patient states per herself that "i'm an alcoholic, i've endless psych issues and i want to ". will monitor.
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
--- NOTE | 2020-01-26 18:45 | NUR ---
REPORT TO NARESH SCHROEDER
--- NOTE | 2020-01-26 19:03 | NUR ---
RECEIVED REPORT FROM ALEXANDRE INFANTE. PT PROVIDED WITH BLANKET, NO SIGNS OF DISTRESS, WILL CONTINUE TO MONITOR. PT IN VIEW OF THE SITTER.
--- NOTE | 2020-01-26 20:43 | NUR ---
ERP BACK TO BEDSIDE. PT DENIES SI/HI.
== END 2020-01-26 20:48 ==
LOC: ED 20:42
DX: F10.120 Alcohol abuse with intoxication, uncomplicated (principal); R45.851 Suicidal ideations; I10 Essential (primary) hypertension; G40.909 Epilepsy, unspecified, not intractable, without status epilepticus; Y90.9 Presence of alcohol in blood, level not specified
CPT/HCPCS: 99283

== ENCOUNTER 2020-07-06 11:10 | Inpatient (IN) | payer MEDICAID ==
[~2020-07-06] VITALS: Ht 165.1 cm; Wt 56.4 kg
[~2020-07-06 11:10] MED LIST changes: -HYDR-3246 PO; +HYDR-3248 PO; -OXYC-306 PO; +OXYC1TAB17 PO; -PANT40TA5 PO; +PANT40TA6 PO
--- NOTE | 2020-07-06 11:23 | NUR ---
PT FRAN FROM HOME, PT REPORTS N/V, FREQUENT FALLS, AND SYNCOPE MULTIPLE TIMES OVER THE LAST WEEK. PT STATES SHE LIVES ALONE. PLACED ON VITALS AND CARDIAC MONITORS, CALL LIGHT GIVEN, AND WARM BLANKETS PROVIDED.
[2020-07-06] MEDS ORDERED: SODIUM CHLORIDE FLUSH 10ML SYR IVF ONE (12:00)
[2020-07-06 12:12] LABS: BASOPHILS % (AUTO) 0 % (0-1); EOSINOPHILS % (AUTO) 0 % (1-7); LYMPHOCYTES % (AUTO) 7 % (22-44); MEAN PLATELET VOLUME 6.1 fL (7.4-10.4); MONOCYTES % (AUTO) 6 % (2-9); NEUTROPHILS % (AUTO) 88 % (42-75); PLATELET COUNT 604 x10^3/uL (130-400); RED BLOOD COUNT 3.44 x10^6/uL (3.82-5.3); RED CELL DISTRIBUTION WIDTH 16.3 % (9.6-15.2)
[2020-07-06 12:23] LABS: ALANINE AMINOTRANSFERASE 82 U/L (12-78); ALBUMIN 3.5 g/dL (3.4-5.0); ANION GAP 15 mmol/L (5-15); CALCIUM 7.5 mg/dL (8.5-10.1); CHLORIDE 85 mmol/L (98-107); CREATININE 1.48 mg/dL (0.55-1.02)
[2020-07-06 12:25] LABS: ALKALINE PHOSPHATASE 193 U/L (45-117); BILIRUBIN,TOTAL 1.5 mg/dL (0.2-1.0); MICROSCOPIC NOT IND; TOTAL PROTEIN 8.4 g/dL (6.4-8.2)
[2020-07-06 12:46] LABS: MD SCAN
[2020-07-06] MEDS ORDERED: NS + 40MEQ KCL 1,000 ML IV ONE (12:57)
[2020-07-06] MEDS ORDERED: POTASSIUM CHLORIDE 40 MEQ in SODIUM CHLORIDE 0.9% 1,000 ML IV ONE (13:00)
[2020-07-06] MEDS ORDERED: POTASSIUM CHLORIDE 10% 40 MEQ/30 ML UDC PO ONE (13:00)
[2020-07-06] MEDS ORDERED: MAGNESIUM SULFATE 1 GM in SODIUM CHLORIDE 0.9% 50 ML IV ONE (13:00)
[2020-07-06] MEDS ORDERED: SODIUM CHLORIDE FLUSH 10ML SYR IVF PRN (13:30)
[2020-07-06] MEDS ORDERED: ONDANSETRON ODT 4 MG PO PRN (13:30)
[2020-07-06] MEDS ORDERED: SODIUM CHLORIDE 0.9% 1,000 ML IV SCH (13:30)
[2020-07-06] MEDS ORDERED: ONDANSETRON 2MG/ML, 2ML IVPush PRN (13:30)
[2020-07-06] MEDS ORDERED: CLON1TAB11 PO (13:53)
[2020-07-06] MEDS ORDERED: QUET100T PO (13:53)
[2020-07-06] MEDS ORDERED: LISI-606 PO (13:53)
[2020-07-06] MEDS ORDERED: TEMA7.5C PO (13:53)
--- NOTE | 2020-07-06 13:53 | NUR ---
REPORT TO GEGE SCHROEDER.
[2020-07-06 14:46] VITALS: BP 146/85
[2020-07-06] MEDS: HEPARIN 5,000 UNITS/ML, 1ML SQ SCH (15:26)
[2020-07-06] MEDS: SODIUM CHLORIDE 0.9% 1,000 ML IV SCH (17:56)
[2020-07-06] MEDS: DIAZEPAM 5 MG TABLET PO SCH (20:41)
[2020-07-06] MEDS: TRAZODONE 100MG TABLET PO SCH (20:43)
[2020-07-06] MEDS: QUETIAPINE 100MG TABLET PO SCH (20:43)
[2020-07-06 20:48] VITALS: BP 131/81
[2020-07-07] MEDS: HEPARIN 5,000 UNITS/ML, 1ML SQ SCH ×3 (01:27→21:27)
[2020-07-07 01:28] VITALS: BP 125/82
[2020-07-07 05:14] LABS: ALANINE AMINOTRANSFERASE 61 U/L (12-78); ALBUMIN 2.8 g/dL (3.4-5.0); ANION GAP 7 mmol/L (5-15); CALCIUM 7.4 mg/dL (8.5-10.1); CHLORIDE 96 mmol/L (98-107); CREATININE 1.29 mg/dL (0.55-1.02); IRON LEVEL 70 mcg/dL (50-170)
[2020-07-07 05:18] LABS: % IRON SATURATION 40 % (20-55); ALKALINE PHOSPHATASE 157 U/L (45-117); BILIRUBIN,TOTAL 0.9 mg/dL (0.2-1.0); TOTAL IRON BINDING CAPACITY 175 mcg/dL (250-450); TOTAL PROTEIN 6.8 g/dL (6.4-8.2)
[2020-07-07 07:57] LABS: BASOPHILS % (AUTO) 2 % (0-1); EOSINOPHILS % (AUTO) 1 % (1-7); LYMPHOCYTES % (AUTO) 29 % (22-44); MEAN CORPUSCULAR HGB CONC 35.3 g/dL (32.4-35.8); MEAN PLATELET VOLUME 6.9 fL (7.4-10.4); MONOCYTES % (AUTO) 8 % (2-9); NEUTROPHILS % (AUTO) 60 % (42-75); PLATELET COUNT 470 x10^3/uL (130-400); RED BLOOD COUNT 2.82 x10^6/uL (3.82-5.3); RED CELL DISTRIBUTION WIDTH 16.5 % (9.6-15.2)
[2020-07-07 08:05] LABS: MD NO
[2020-07-07 08:25] VITALS: BP 114/71
[2020-07-07] MEDS ORDERED: POTASSIUM CHLORIDE 20 MEQ TAB.ER.PRT PO ONE (08:30)
[2020-07-07] MEDS ORDERED: MAGNESIUM SULFATE PMX 4GM/100M 100 ML IV ONE (08:30)
[2020-07-07] MEDS: CALCIUM/VITAMIN D3 250-125 TABLET PO SCH ×2 (09:00→21:00)
[2020-07-07] MEDS: DIAZEPAM 5 MG TABLET PO SCH ×2 (09:37→21:24)
[2020-07-07] MEDS: SODIUM CHLORIDE 0.9% 1,000 ML IV SCH (10:40)
[2020-07-07] MEDS ORDERED: SODIUM CHLORIDE 0.9% 1,000 ML IV SCH (13:30)
[2020-07-07 14:45] VITALS: BP 130/79
[2020-07-07 20:10] VITALS: BP 120/81
[2020-07-07] MEDS: TRAZODONE 100MG TABLET PO SCH (21:24)
[2020-07-07] MEDS: QUETIAPINE 100MG TABLET PO SCH (21:25)
[2020-07-08 02:39] VITALS: BP 111/75
[2020-07-08 06:32] LABS: BASOPHILS % (AUTO) 2 % (0-1); EOSINOPHILS % (AUTO) 1 % (1-7); LYMPHOCYTES % (AUTO) 26 % (22-44); MEAN CORPUSCULAR HEMOGLOBIN 32.6 pg (27.0-34.8); MEAN CORPUSCULAR HGB CONC 33.8 g/dL (32.4-35.8); MEAN PLATELET VOLUME 6.1 fL (7.4-10.4); MONOCYTES % (AUTO) 9 % (2-9); NEUTROPHILS % (AUTO) 62 % (42-75); PLATELET COUNT 420 x10^3/uL (130-400); RED BLOOD COUNT 2.83 x10^6/uL (3.82-5.3); RED CELL DISTRIBUTION WIDTH 16.2 % (9.6-15.2)
[2020-07-08 06:45] LABS: ALANINE AMINOTRANSFERASE 73 U/L (12-78); ALBUMIN 2.7 g/dL (3.4-5.0); ANION GAP 7 mmol/L (5-15); CALCIUM 9.3 mg/dL (8.5-10.1); CHLORIDE 103 mmol/L (98-107); CREATININE 1.19 mg/dL (0.55-1.02)
[2020-07-08 06:46] LABS: MD NO
[2020-07-08 06:48] LABS: ALKALINE PHOSPHATASE 161 U/L (45-117); BILIRUBIN,TOTAL 0.7 mg/dL (0.2-1.0); TOTAL PROTEIN 6.6 g/dL (6.4-8.2)
[2020-07-08] MEDS: CALCIUM/VITAMIN D3 250-125 TABLET PO SCH ×2 (08:01→21:00)
[2020-07-08] MEDS: DIAZEPAM 5 MG TABLET PO SCH ×2 (08:01→21:56)
[2020-07-08 09:11] VITALS: BP 131/100
[2020-07-08] MEDS: SODIUM CHLORIDE 0.9% 1,000 ML IV SCH (12:10)
[2020-07-08] MEDS: HEPARIN 5,000 UNITS/ML, 1ML SQ SCH (12:11)
[2020-07-08 14:20] VITALS: BP 133/86
[2020-07-08 21:54] VITALS: BP 161/96
[2020-07-08] MEDS: QUETIAPINE 100MG TABLET PO SCH (21:56)
[2020-07-08] MEDS: TRAZODONE 100MG TABLET PO SCH (21:56)
[2020-07-09] MEDS: HEPARIN 5,000 UNITS/ML, 1ML SQ SCH ×2 (01:30→13:30)
[2020-07-09 03:00] VITALS: BP 144/88
[2020-07-09 06:38] LABS: ANION GAP 9 mmol/L (5-15); CALCIUM 9.8 mg/dL (8.5-10.1); CHLORIDE 98 mmol/L (98-107); CREATININE 1.05 mg/dL (0.55-1.02)
[2020-07-09 06:53] VITALS: BP 130/85
[2020-07-09] MEDS: DIAZEPAM 5 MG TABLET PO SCH ×2 (08:44→21:34)
[2020-07-09] MEDS: CALCIUM/VITAMIN D3 250-125 TABLET PO SCH ×2 (08:44→21:34)
[2020-07-09 11:03] VITALS: BP_SYST 115; BP_SYST 123; BP_SYST 136; BP_DIAS 79; BP_DIAS 82; BP_DIAS 90
[2020-07-09 12:07] VITALS: BP 131/83
[2020-07-09 20:00] VITALS: BP 164/108
[2020-07-09] MEDS ORDERED: hydrALAzine 20 MG/ML, 1ML IV ONE (21:30)
[2020-07-09] MEDS: QUETIAPINE 100MG TABLET PO SCH (21:34)
[2020-07-09] MEDS: TRAZODONE 100MG TABLET PO SCH (21:34)
[2020-07-09 21:50] VITALS: BP 146/88
[2020-07-10] MEDS: HEPARIN 5,000 UNITS/ML, 1ML SQ SCH ×3 (01:10→20:52)
[2020-07-10 02:53] VITALS: BP 108/80
[2020-07-10 05:18] LABS: BASOPHILS % (AUTO) 2 % (0-1); EOSINOPHILS % (AUTO) 1 % (1-7); LYMPHOCYTES % (AUTO) 18 % (22-44); MEAN CORPUSCULAR HEMOGLOBIN 33.3 pg (27.0-34.8); MEAN CORPUSCULAR HGB CONC 35.2 g/dL (32.4-35.8); MEAN PLATELET VOLUME 6.3 fL (7.4-10.4); MONOCYTES % (AUTO) 6 % (2-9); NEUTROPHILS % (AUTO) 73 % (42-75); PLATELET COUNT 422 x10^3/uL (130-400); RED BLOOD COUNT 3.06 x10^6/uL (3.82-5.3); RED CELL DISTRIBUTION WIDTH 16.3 % (9.6-15.2)
[2020-07-10 05:28] LABS: ALBUMIN 3.1 g/dL (3.4-5.0); ANION GAP 9 mmol/L (5-15); CALCIUM 9.4 mg/dL (8.5-10.1); CHLORIDE 97 mmol/L (98-107)
[2020-07-10 05:36] LABS: ALANINE AMINOTRANSFERASE 95 U/L (12-78); ALKALINE PHOSPHATASE 160 U/L (45-117); BILIRUBIN,TOTAL 0.7 mg/dL (0.2-1.0); CREATININE 1.09 mg/dL (0.55-1.02); TOTAL PROTEIN 7.3 g/dL (6.4-8.2)
[2020-07-10 05:59] LABS: MD SCAN
[2020-07-10 07:27] VITALS: BP 126/83
[2020-07-10] MEDS ORDERED: MAGNESIUM SULFATE PMX 2GM/50ML 50 ML IV ONE ×2 (07:30→09:30)
[2020-07-10] MEDS: CALCIUM/VITAMIN D3 250-125 TABLET PO SCH ×2 (10:10→20:50)
[2020-07-10 14:27] VITALS: BP 114/75
[2020-07-10 19:40] VITALS: BP 138/91
[2020-07-10] MEDS: TRAZODONE 100MG TABLET PO SCH (20:50)
[2020-07-10] MEDS: QUETIAPINE 100MG TABLET PO SCH (20:50)
[2020-07-10] MEDS: ACETAMINOPHEN 325 MG TABLET PO PRN (20:55)
[2020-07-11 02:04] VITALS: BP 107/70
[2020-07-11 03:57] LABS: ANION GAP 9 mmol/L (5-15); BASOPHILS % (AUTO) 1 % (0-1); CALCIUM 9.8 mg/dL (8.5-10.1); CHLORIDE 98 mmol/L (98-107); EOSINOPHILS % (AUTO) 1 % (1-7); LYMPHOCYTES % (AUTO) 23 % (22-44); MEAN CORPUSCULAR HEMOGLOBIN 33.5 pg (27.0-34.8); MEAN CORPUSCULAR HGB CONC 34.9 g/dL (32.4-35.8); MEAN PLATELET VOLUME 6.5 fL (7.4-10.4); MONOCYTES % (AUTO) 8 % (2-9); NEUTROPHILS % (AUTO) 67 % (42-75); PLATELET COUNT 390 x10^3/uL (130-400); RED BLOOD COUNT 2.93 x10^6/uL (3.82-5.3); RED CELL DISTRIBUTION WIDTH 16.6 % (9.6-15.2)
[2020-07-11 03:59] LABS: CREATININE 1.27 mg/dL (0.55-1.02)
[2020-07-11 04:09] LABS: MD NO
[2020-07-11 06:51] VITALS: BP 126/85
[2020-07-11] MEDS ORDERED: POLYETHYLENE GLYCOL 17 GM PACKET PO PRN (08:30)
[2020-07-11] MEDS ORDERED: BISACODYL 10 MG SUPP PR PRN (08:30)
[2020-07-11] MEDS: DOCUSATE 100 MG CAPSULE PO SCH ×2 (09:00→19:21)
[2020-07-11] MEDS: HEPARIN 5,000 UNITS/ML, 1ML SQ SCH ×2 (10:20→21:16)
[2020-07-11] MEDS: CALCIUM/VITAMIN D3 250-125 TABLET PO SCH ×2 (10:20→19:30)
[2020-07-11 12:21] VITALS: BP 124/88
[2020-07-11 19:27] VITALS: BP 129/84
[2020-07-11] MEDS: ACETAMINOPHEN 325 MG TABLET PO PRN (19:30)
[2020-07-11] MEDS: QUETIAPINE 100MG TABLET PO SCH (19:30)
[2020-07-11] MEDS: TRAZODONE 100MG TABLET PO SCH (19:30)
[2020-07-12 02:57] VITALS: BP 106/69
[2020-07-12 06:06] LABS: ANION GAP 10 mmol/L (5-15); CALCIUM 10.2 mg/dL (8.5-10.1); CHLORIDE 99 mmol/L (98-107)
[2020-07-12 06:09] LABS: CREATININE 1.24 mg/dL (0.55-1.02)
[2020-07-12 07:30] VITALS: BP 126/85
[2020-07-12] MEDS: DOCUSATE 100 MG CAPSULE PO SCH ×2 (09:00→20:25)
[2020-07-12] MEDS: CALCIUM/VITAMIN D3 250-125 TABLET PO SCH ×2 (09:01→20:23)
[2020-07-12] MEDS: NAPHAZOLINE/PHENIRAMINE OPHTH EACHEYE PRN (11:31)
[2020-07-12] MEDS: HEPARIN 5,000 UNITS/ML, 1ML SQ SCH ×2 (11:32→22:47)
[2020-07-12 12:03] VITALS: BP 129/85
[2020-07-12 19:16] VITALS: BP 160/91
[2020-07-12] MEDS: ACETAMINOPHEN 325 MG TABLET PO PRN (20:23)
[2020-07-12] MEDS: TRAZODONE 100MG TABLET PO SCH (20:23)
[2020-07-12] MEDS: QUETIAPINE 100MG TABLET PO SCH (20:23)
[2020-07-13 00:28] VITALS: BP 118/74
[2020-07-13 06:36] LABS: ANION GAP 8 mmol/L (5-15); CALCIUM 10.1 mg/dL (8.5-10.1); CHLORIDE 100 mmol/L (98-107); CREATININE 1.28 mg/dL (0.55-1.02)
[2020-07-13 06:45] VITALS: BP 109/72
[2020-07-13] MEDS ORDERED: MAGNESIUM SULFATE PMX 2GM/50ML 50 ML IV ONE (07:30)
[2020-07-13] MEDS: CALCIUM/VITAMIN D3 250-125 TABLET PO SCH ×2 (08:43→21:00)
[2020-07-13] MEDS: DOCUSATE 100 MG CAPSULE PO SCH ×2 (09:27→21:00)
[2020-07-13] MEDS: ACETAMINOPHEN 325 MG TABLET PO PRN (11:07)
[2020-07-13 12:30] VITALS: BP 144/80
[2020-07-13] MEDS: HEPARIN 5,000 UNITS/ML, 1ML SQ SCH (13:30)
[2020-07-13] MEDS: TRAZODONE 100MG TABLET PO SCH (21:18)
[2020-07-13] MEDS: NAPHAZOLINE/PHENIRAMINE OPHTH EACHEYE PRN (21:18)
[2020-07-13] MEDS: QUETIAPINE 100MG TABLET PO SCH (21:19)
[2020-07-13 21:21] VITALS: BP 164/91
[2020-07-14] MEDS: HEPARIN 5,000 UNITS/ML, 1ML SQ SCH ×2 (01:30→14:08)
[2020-07-14 02:50] VITALS: BP 125/74
[2020-07-14 05:22] LABS: ANION GAP 8 mmol/L (5-15); CALCIUM 9.7 mg/dL (8.5-10.1); CHLORIDE 103 mmol/L (98-107); CREATININE 1.14 mg/dL (0.55-1.02)
[2020-07-14 08:07] VITALS: BP 127/88
[2020-07-14] MEDS: CALCIUM/VITAMIN D3 250-125 TABLET PO SCH ×2 (08:15→20:42)
[2020-07-14] MEDS: DOCUSATE 100 MG CAPSULE PO SCH ×2 (08:15→20:45)
[2020-07-14 14:30] VITALS: BP 151/87
[2020-07-14 20:37] VITALS: BP 153/93
[2020-07-14] MEDS: TRAZODONE 100MG TABLET PO SCH (20:41)
[2020-07-14] MEDS: QUETIAPINE 100MG TABLET PO SCH (20:42)
[2020-07-15] MEDS: HEPARIN 5,000 UNITS/ML, 1ML SQ SCH ×2 (01:03→13:30)
[2020-07-15] MEDS: ACETAMINOPHEN 325 MG TABLET PO PRN (01:25)
[2020-07-15 01:26] VITALS: BP 127/78
[2020-07-15] MEDS: NAPHAZOLINE/PHENIRAMINE OPHTH EACHEYE PRN (05:53)
[2020-07-15 05:59] LABS: BASOPHILS % (AUTO) 2 % (0-1); EOSINOPHILS % (AUTO) 2 % (1-7); LYMPHOCYTES % (AUTO) 26 % (22-44); MEAN CORPUSCULAR HEMOGLOBIN 33.5 pg (27.0-34.8); MEAN CORPUSCULAR HGB CONC 34.5 g/dL (32.4-35.8); MEAN PLATELET VOLUME 7.3 fL (7.4-10.4); MONOCYTES % (AUTO) 8 % (2-9); NEUTROPHILS % (AUTO) 63 % (42-75); PLATELET COUNT 493 x10^3/uL (130-400); RED BLOOD COUNT 2.79 x10^6/uL (3.82-5.3); RED CELL DISTRIBUTION WIDTH 16.3 % (9.6-15.2)
[2020-07-15 06:00] LABS: MD NO
[2020-07-15 06:08] LABS: ANION GAP 9 mmol/L (5-15); CALCIUM 9.5 mg/dL (8.5-10.1); CHLORIDE 105 mmol/L (98-107); CREATININE 1.17 mg/dL (0.55-1.02)
[2020-07-15] MEDS: CALCIUM/VITAMIN D3 250-125 TABLET PO SCH ×2 (08:42→21:00)
[2020-07-15] MEDS: DOCUSATE 100 MG CAPSULE PO SCH ×2 (08:42→21:00)
[2020-07-15 08:57] VITALS: BP 128/87
[2020-07-15 13:15] VITALS: BP 147/88
[2020-07-15 21:00] VITALS: BP 172/109
[2020-07-15] MEDS ORDERED: MAGNESIUM SULFATE PMX 2GM/50ML 50 ML IV ONE (21:00)
[2020-07-15] MEDS: TRAZODONE 100MG TABLET PO SCH (21:24)
[2020-07-15] MEDS: QUETIAPINE 100MG TABLET PO SCH (21:24)
[2020-07-16] MEDS: HEPARIN 5,000 UNITS/ML, 1ML SQ SCH ×3 (01:06→23:44)
[2020-07-16 01:10] VITALS: BP 114/76
[2020-07-16 08:15] VITALS: BP 159/89
[2020-07-16] MEDS: DOCUSATE 100 MG CAPSULE PO SCH ×2 (08:27→19:29)
[2020-07-16] MEDS: CALCIUM/VITAMIN D3 250-125 TABLET PO SCH ×2 (08:30→21:00)
[2020-07-16 19:17] VITALS: BP 150/83
[2020-07-16] MEDS: ACETAMINOPHEN 325 MG TABLET PO PRN (19:38)
[2020-07-16] MEDS: TRAZODONE 100MG TABLET PO SCH (20:59)
[2020-07-16] MEDS: QUETIAPINE 100MG TABLET PO SCH (21:00)
[2020-07-17 00:53] VITALS: BP 107/71
[2020-07-17] MEDS: ACETAMINOPHEN 325 MG TABLET PO PRN ×3 (04:39→22:44)
[2020-07-17 05:51] LABS: BASOPHILS % (AUTO) 1 % (0-1); EOSINOPHILS % (AUTO) 2 % (1-7); LYMPHOCYTES % (AUTO) 27 % (22-44); MEAN CORPUSCULAR HEMOGLOBIN 33.6 pg (27.0-34.8); MEAN CORPUSCULAR HGB CONC 34.8 g/dL (32.4-35.8); MEAN PLATELET VOLUME 7.4 fL (7.4-10.4); MONOCYTES % (AUTO) 7 % (2-9); NEUTROPHILS % (AUTO) 63 % (42-75); PLATELET COUNT 569 x10^3/uL (130-400); RED BLOOD COUNT 2.84 x10^6/uL (3.82-5.3); RED CELL DISTRIBUTION WIDTH 16.3 % (9.6-15.2)
[2020-07-17 05:52] LABS: MD NO
[2020-07-17 06:02] LABS: CALCIUM 10.4 mg/dL (8.5-10.1); CHLORIDE 105 mmol/L (98-107)
[2020-07-17 06:09] LABS: ALANINE AMINOTRANSFERASE 90 U/L (12-78); ALKALINE PHOSPHATASE 167 U/L (45-117); ANION GAP 9 mmol/L (5-15); BILIRUBIN,TOTAL 0.4 mg/dL (0.2-1.0); CHOL/HDL RATIO 6.2; CHOLESTEROL, TOTAL 191 mg/dL (140-239); CREATININE 1.15 mg/dL (0.55-1.02); HDL CHOL % 16 % (28-40); HDL CHOLESTEROL (DIRECT) 31 mg/dL (40-60); LDL CHOLESTEROL,CALCULATED 116 mg/dL (54-169); LDL/HDL RATIO 3.7 (0.5-3.0); TRIGLYCERIDES 219 mg/dL (50-200); VLDL CHOLESTEROL 44 mg/dL (0-25)
[2020-07-17 07:20] VITALS: BP 105/71
[2020-07-17] MEDS: DOCUSATE 100 MG CAPSULE PO SCH ×2 (08:37→19:26)
[2020-07-17] MEDS: CALCIUM/VITAMIN D3 250-125 TABLET PO SCH ×2 (08:42→21:09)
[2020-07-17 12:30] VITALS: BP 141/80
[2020-07-17] MEDS: HEPARIN 5,000 UNITS/ML, 1ML SQ SCH ×2 (13:30→23:03)
[2020-07-17] MEDS: NAPHAZOLINE/PHENIRAMINE OPHTH EACHEYE PRN (15:20)
[2020-07-17 18:27] VITALS: BP 161/89
[2020-07-17] MEDS: QUETIAPINE 100MG TABLET PO SCH (21:09)
[2020-07-17] MEDS: TRAZODONE 100MG TABLET PO SCH (21:09)
[2020-07-18 01:38] VITALS: BP 103/66
[2020-07-18] MEDS: ACETAMINOPHEN 325 MG TABLET PO PRN ×2 (06:03→19:11)
[2020-07-18 08:08] VITALS: BP 122/81
[2020-07-18] MEDS: DOCUSATE 100 MG CAPSULE PO SCH ×2 (09:00→21:00)
[2020-07-18] MEDS: CALCIUM/VITAMIN D3 250-125 TABLET PO SCH ×2 (09:31→21:29)
[2020-07-18 12:14] VITALS: BP 153/90
[2020-07-18] MEDS: HEPARIN 5,000 UNITS/ML, 1ML SQ SCH ×2 (12:24→23:17)
[2020-07-18] MEDS: NAPHAZOLINE/PHENIRAMINE OPHTH EACHEYE PRN (15:12)
[2020-07-18 18:28] VITALS: BP 152/88
[2020-07-18] MEDS: TRAZODONE 100MG TABLET PO SCH (21:28)
[2020-07-18] MEDS: QUETIAPINE 100MG TABLET PO SCH (21:29)
[2020-07-19 01:19] VITALS: BP 117/75
[2020-07-19] MEDS: ACETAMINOPHEN 325 MG TABLET PO PRN ×2 (05:25→16:07)
[2020-07-19 07:28] VITALS: BP 134/85
[2020-07-19] MEDS: DOCUSATE 100 MG CAPSULE PO SCH ×2 (07:37→19:58)
[2020-07-19] MEDS: CALCIUM/VITAMIN D3 250-125 TABLET PO SCH ×2 (09:57→19:58)
[2020-07-19 12:45] VITALS: BP 117/75
[2020-07-19] MEDS: HEPARIN 5,000 UNITS/ML, 1ML SQ SCH (13:53)
[2020-07-19 19:12] VITALS: BP 145/87
[2020-07-19] MEDS: TRAZODONE 100MG TABLET PO SCH (19:57)
[2020-07-19] MEDS: QUETIAPINE 100MG TABLET PO SCH (19:58)
[2020-07-20] MEDS: HEPARIN 5,000 UNITS/ML, 1ML SQ SCH ×2 (01:24→07:24)
[2020-07-20 02:09] VITALS: BP 104/68
[2020-07-20 04:48] LABS: BASOPHILS % (AUTO) 1 % (0-1); EOSINOPHILS % (AUTO) 2 % (1-7); LYMPHOCYTES % (AUTO) 21 % (22-44); MEAN CORPUSCULAR HEMOGLOBIN 33.9 pg (27.0-34.8); MEAN PLATELET VOLUME 7.3 fL (7.4-10.4); MONOCYTES % (AUTO) 6 % (2-9); NEUTROPHILS % (AUTO) 69 % (42-75); PLATELET COUNT 643 x10^3/uL (130-400); RED BLOOD COUNT 2.87 x10^6/uL (3.82-5.3); RED CELL DISTRIBUTION WIDTH 16.3 % (9.6-15.2)
[2020-07-20 04:53] LABS: MD NO
[2020-07-20 04:59] LABS: ALBUMIN 3.1 g/dL (3.4-5.0); ANION GAP 9 mmol/L (5-15); CALCIUM 9.4 mg/dL (8.5-10.1); CHLORIDE 105 mmol/L (98-107)
[2020-07-20 05:04] LABS: ALANINE AMINOTRANSFERASE 85 U/L (12-78); ALKALINE PHOSPHATASE 141 U/L (45-117); BILIRUBIN,TOTAL 0.6 mg/dL (0.2-1.0); CREATININE 1.18 mg/dL (0.55-1.02); TOTAL PROTEIN 6.8 g/dL (6.4-8.2)
[2020-07-20] MEDS: ACETAMINOPHEN 325 MG TABLET PO PRN (06:38)
[2020-07-20 07:11] VITALS: BP 138/85
[2020-07-20] MEDS: DOCUSATE 100 MG CAPSULE PO SCH (07:24)
[2020-07-20] MEDS: CALCIUM/VITAMIN D3 250-125 TABLET PO SCH (08:30)
[2020-07-20] MEDS ORDERED: THIA100T67 PO (12:48)
[2020-07-20] MEDS ORDERED: FOLI1TAB32 PO (12:48)
[2020-07-20] MEDS ORDERED: MULT-449 PO (12:48)
[2020-07-20 13:07] VITALS: BP 155/93
== END 2020-07-20 13:45 | disposition home or self-care (01) | DRG 282 ==
LOC: ED 11:57 → EDIP 13:34 → 5SO 14:22 → 4NW 07-16 18:52 → DCLOUNGE 07-20 13:34
PROVIDERS: ADMIT Internal Medicine; ATTEND Internal Medicine
DX: K85.20 Alcohol induced acute pancreatitis without necrosis or infection (principal); E83.42 Hypomagnesemia; E83.51 Hypocalcemia; E87.1 Hypo-osmolality and hyponatremia; E87.6 Hypokalemia; F10.20 Alcohol dependence, uncomplicated; F25.0 Schizoaffective disorder, bipolar type; F41.1 Generalized anxiety disorder; F43.10 Post-traumatic stress disorder, unspecified; G47.00 Insomnia, unspecified; I11.0 Hypertensive heart disease with heart failure; I25.10 Atherosclerotic heart disease of native coronary artery without angina pectoris; I50.32 Chronic diastolic (congestive) heart failure; K70.10 Alcoholic hepatitis without ascites; N17.0 Acute kidney failure with tubular necrosis; F13.20 Sedative, hypnotic or anxiolytic dependence, uncomplicated; D63.8 Anemia in other chronic diseases classified elsewhere; Y90.9 Presence of alcohol in blood, level not specified; Z66 Do not resuscitate; Z82.49 Family history of ischemic heart disease and other diseases of the circulatory system; Z88.8 Allergy status to other drugs, medicaments and biological substances
CPT/HCPCS: 36415; 76700; 80048; 80053; 80061; 80320; 81003; 82330; 83540; 83550; 83690; 83735; 85025; 93005; 93306; 96374; 96375; 99291; G0378; J1644; J3475; J3480; G0480; J0360; J7030